=== PATIENT | male | born 1945 | race Caucasian/White ===

== ENCOUNTER 2020-01-23 10:49 | Day surgery (SDC) | payer MEDICARE, BC ==
[~2020-01-23] VITALS: Ht 166.4 cm; Wt 84.1 kg
[2020-01-23 11:08] VITALS: BP 188/104
[2020-01-23] MEDS ORDERED: losartan PO (11:23)
[2020-01-23] MEDS ORDERED: ASPI-496 PO (11:23)
[2020-01-23] MEDS ORDERED: UBID10CA7 PO (11:23)
[2020-01-23] MEDS ORDERED: OMEG1CAP23 PO (11:23)
[2020-01-23] MEDS ORDERED: MAGN400T36 PO (11:23)
[2020-01-23] MEDS ORDERED: CHOL10003 PO (11:23)
[2020-01-23 11:34] LABS: BASOPHILS # (AUTO) 0.02 x10^3/uL (0-0.1); BASOPHILS % (AUTO) 0 % (0-1); EOSINOPHILS # (AUTO) 0.08 x10^3/uL (0-0.4); EOSINOPHILS % (AUTO) 2 % (1-7); LYMPHOCYTES # (AUTO) 1.13 x10^3/uL (1-3.4); LYMPHOCYTES % (AUTO) 20 % (22-44); MD NO; MEAN CORPUSCULAR HEMOGLOBIN 31.6 pg (27.5-34.5); MEAN CORPUSCULAR HGB CONC 33.3 g/dL (33.2-36.2); MEAN CORPUSCULAR VOLUME 94.8 fL (81-97); MEAN PLATELET VOLUME 7.8 fL (7.4-10.4); MONOCYTES # (AUTO) 0.42 x10^3/uL (0.2-0.8); MONOCYTES % (AUTO) 8 % (2-9); NEUTROPHILS # (AUTO) 3.89 x10^3/uL (1.8-6.8); NEUTROPHILS % (AUTO) 70 % (42-75); PLATELET COUNT 162 x10^3/uL (130-400); RED CELL DISTRIBUTION WIDTH 13.6 % (9.4-14.8)
[2020-01-23] MEDS ORDERED: MIDAZOLAM 1 MG/ML, 5ML ONE (11:38)
[2020-01-23] MEDS ORDERED: VERAPAMIL 2.5 MG/ML, 2ML ONE (11:39)
[2020-01-23] MEDS ORDERED: BIVALIRUDIN 250 MG ONE (11:39)
[2020-01-23] MEDS ORDERED: LIDOCAINE-MPF 1%, 5ML ONE (11:39)
[2020-01-23] MEDS ORDERED: HEPARIN 1,000 UNITS/ML, 10ML ONE (11:39)
[2020-01-23] MEDS ORDERED: TICAGRELOR 90 MG TABLET ONE (11:39)
[2020-01-23] MEDS ORDERED: FENTANYL PF 100 MCG/2ML ONE (11:39)
[2020-01-23 11:43] LABS: ANION GAP 5 mmol/L (5-15); CALCIUM 8.7 mg/dL (8.5-10.1); CHLORIDE 112 mmol/L (98-107); CREATININE 1.16 mg/dL (0.7-1.3)
== END 2020-01-23 15:03 | disposition home or self-care (01) ==
LOC: CACL 10:49
PROVIDERS: ATTEND Internal Medicine Cardiovascular Disease
DX: R93.1 Abnormal findings on diagnostic imaging of heart and coronary circulation (principal); I25.10 Atherosclerotic heart disease of native coronary artery without angina pectoris; I25.83 Coronary atherosclerosis due to lipid rich plaque; I42.9 Cardiomyopathy, unspecified; I11.0 Hypertensive heart disease with heart failure; I50.9 Heart failure, unspecified; I27.20 Pulmonary hypertension, unspecified; I25.2 Old myocardial infarction; E78.5 Hyperlipidemia, unspecified; Z79.02 Long term (current) use of antithrombotics/antiplatelets; Z79.82 Long term (current) use of aspirin; Z79.1 Long term (current) use of non-steroidal anti-inflammatories (NSAID); Z79.899 Other long term (current) drug therapy; Z95.5 Presence of coronary angioplasty implant and graft; Z80.42 Family history of malignant neoplasm of prostate
CPT/HCPCS: 36415; 80048; 85025; 93460; 99156; 99157; C1769; C1894; J1644; J2250; J3010; Q9967; J0583